=== PATIENT | male | born 1950 | race Native Hawaiian/Other Pacific Islander ===

== ENCOUNTER 2017-05-24 11:18 | Outpatient (CLI) | payer OTHER, MEDICARE ==
[2017-05-24] MEDS ORDERED: LOPRESSOR100 MG PO (11:37)
[2017-05-24] MEDS ORDERED: HYZAAR1 TA2 PO (11:38)
[2017-05-24] MEDS ORDERED: CITALOPRAM20 MG PO (11:39)
[2017-05-24] MEDS ORDERED: ASPIR-8181 MG OR (11:42)
[2017-05-24] MEDS ORDERED: PROTONIX20 MG PO (11:43)
== END 2017-05-24 11:24 | disposition short-term general hospital (02) ==
LOC: AMB 11:18
DX: R55 Syncope and collapse (principal)
CPT/HCPCS: A0425; A0427

== ENCOUNTER 2017-05-24 11:32 | Emergency (ER) | payer OTHER, MEDICARE ==
[~2017-05-24] VITALS: Ht 180.3 cm; Wt 54.4 kg
[2017-05-24] MEDS ORDERED: LOPRESSOR100 MG PO (11:37)
[2017-05-24] MEDS ORDERED: HYZAAR1 TA2 PO (11:38)
[2017-05-24] MEDS ORDERED: CITALOPRAM20 MG PO (11:39)
[2017-05-24 11:41] VITALS: TEMP 98.3
[2017-05-24] MEDS ORDERED: ASPIR-8181 MG OR (11:42)
[2017-05-24] MEDS ORDERED: PROTONIX20 MG PO (11:43)
[2017-05-24 11:56] LABS: PLATELET COUNT 141 K/uL (142-355)
[2017-05-24 12:05] LABS: POTASSIUM 3.5 mmol/L (3.6-5.2)
[2017-05-24 13:58] VITALS: BP 113/69
== END 2017-05-24 14:00 | disposition home or self-care (01) ==
LOC: ED 11:32
DX: K52.89 Other specified noninfective gastroenteritis and colitis (principal); E86.0 Dehydration; E11.9 Type 2 diabetes mellitus without complications
CPT/HCPCS: 36415; 80053; 81000; 83036; 85027; 93005; 96360; 96361; 99284

== ENCOUNTER 2019-10-16 12:10 | Outpatient (CLI) | payer OTHER, MEDICARE ==
[~2019-10-16 12:10] MED LIST: ASPIR-8181 MG OR; CITALOPRAM20 MG PO; HYZAAR1 TA2 PO; LOPRESSOR100 MG PO; PROTONIX20 MG PO
[2019-10-16 12:52] LABS: PLATELET COUNT 149 K/uL (142-355)
[2019-10-16 12:57] LABS: POTASSIUM 4.1 mmol/L (3.6-5.2)
== END 2019-10-16 19:31 | disposition home or self-care (01) ==
LOC: LABW 12:10
PROVIDERS: Nurse Practitioner Family
DX: R53.83 Other fatigue (principal); R53.1 Weakness; E11.9 Type 2 diabetes mellitus without complications; I10 Essential (primary) hypertension; G70.00 Myasthenia gravis without (acute) exacerbation
CPT/HCPCS: 36415; 80053; 83735; 85027